=== PATIENT | male | born 1990 | race Caucasian/White ===

== ENCOUNTER 2022-10-27 09:25 | Emergency (ER) | payer OTHER ==
[~2022-10-27] VITALS: Ht 185.4 cm; Wt 82.9 kg
[2022-10-27 11:33] VITALS: BP 135/76
[2022-10-27] MEDS ORDERED: IBUP80TA PO (11:47)
== END 2022-10-27 12:04 | disposition home or self-care (01) ==
LOC: M ED 09:25
DX: S83.91XA Sprain of unspecified site of right knee, initial encounter (principal); X50.9XXA Other and unspecified overexertion or strenuous movements or postures, initial encounter; Y92.89 Other specified places as the place of occurrence of the external cause; Y93.89 Activity, other specified; Y99.1 Military activity

== ENCOUNTER → 2022-11-12 | Outpatient (CLI) | payer OTHER ==
[~2022-11-12] MED LIST: IBUP80TA PO
== END ==
LOC: M LAB 16:38
DX: Z52.3 Bone marrow donor (principal)